=== PATIENT | male | born 2000 | race Caucasian/White ===

== ENCOUNTER 2018-02-02 15:40 | Emergency (ER) | payer MEDICAID ==
[2018-02-02 15:49] VITALS: BP 138/83; PULSE 70; RESP 18; TEMP 98; O2SAT 100
--- NOTE | 2018-02-02 16:26 | C.PDOC ---
History Of Present Illness 17 year old male patient presents to the ER with complaints of left toe pain since yesterday. Patient notes that it occurred after he played goalie in a soccer game though doesnt recall the specific incident. Reports he played the entire game but today the pain worsened prompting ED visit. Patient denies any change in sensation and or weakness. Time Seen by Provider: 02/02/18 16:03 Chief Complaint (Nursing): Lower Extremity Problem/Injury History Per: Patient History/Exam Limitations: no limitations Onset/Duration Of Symptoms: Hrs Current Symptoms Are (Timing): Still Present - Ankle/Foot Description Of Injury: Struck With Object (soccer ball) Past Medical History Reviewed: Historical Data, Nursing Documentation, Vital Signs Vital Signs: Last Vital Signs Temp 98 F 02/02/18 15:45 Pulse 70 02/02/18 15:45 Resp 18 02/02/18 16:53 BP 138/83 02/02/18 15:45 Pulse Ox 100 02/02/18 16:49 Family History: States: No Known Family Hx - Social History Hx Alcohol Use: No Hx Substance Use: No - Immunization History Hx Tetanus Toxoid Vaccination: No Hx Influenza Vaccination: No Hx Pneumococcal Vaccination: No Review Of Systems Except As Marked, All Systems Reviewed And Found Negative. Musculoskeletal: Positive for: Foot Pain (left toe pain) Neurological: Positive for: Other (no changes in sensation or motor) Physical Exam - Physical Exam Appears: Well, Non-toxic, No Acute Distress Skin: Normal Color, Warm, Dry Head: Atraumatic, Normacephalic Eye(s): bilateral: Normal Inspection, EOMI Nose: Normal Oral Mucosa: Moist Neck: Normal ROM, Supple Chest: Symmetrical Respiratory: No Accessory Muscle Use Extremity: Normal ROM, Tenderness (to the left first MTP), Capillary Refill (< 2 sec), No Deformity, No Swelling Pulses: Left Dorsalis Pedis: Normal, Right Dorsalis Pedis: Normal Neurological/Psych: Oriented x3, Normal Speech, Normal Motor, Normal Sensation Gait: Steady ED Course And Treatment O2 Sat by Pulse Oximetry: 100 (RA) Pulse Ox Interpretation: Normal - Other Rad Toe XR X-Ray: Viewed By Me, Read By Radiologist Interpretation: PROCEDURE: Radiographs of the left great toe. TECHNIQUE:: AP radiograph of the left foot, with oblique and lateral view of the left great toe. COMPARISON: None. FINDINGS: BONES: No acute fracture. Mild hallux valgus deformity. JOINTS: Normal. SOFT TISSUES: Normal. OTHER FINDINGS: None. IMPRESSION: No demonstrated fracture or dislocation. Progress Note: Plans: -- XR of left great toe. Patient was offered medication , but declined. Instructed RICE and follow up with PMD in 1-2 days. Disposition - Disposition Disposition: HOME/ ROUTINE Disposition Time: 16:48 Condition: STABLE Additional Instructions: Rest, ice and elevate the area. Follow up with your doctor in 1-2 days. Return to ER if symptoms persist or worsen. Instructions: Contusion (DC) Forms: [email or web address] ([place]) - Clinical Impression Clinical Impression: Toe contusion - PA / DRUPAL DEVELOPER / Resident Statement / has reviewed & agrees with the documentation as recorded. - Scribe Statement The provider has reviewed the documentation as recorded by the Jeanette Pulido Do All medical record entries made by the Scribe were at my direction and personally dictated by me. I have reviewed the chart and agree that the record accurately reflects my personal performance of the history, physical exam, medical decision making, and the department course for this patient. I have also personally directed, reviewed, and agree with the discharge instructions and disposition.
--- NOTE | 2018-02-02 16:34 | RAD ---
PROCEDURE: Radiographs of the left great toe. TECHNIQUE:: AP radiograph of the left foot, with oblique and lateral view of the left great toe. COMPARISON: None. FINDINGS: BONES: No acute fracture. Mild hallux valgus deformity. JOINTS: Normal. SOFT TISSUES: Normal. OTHER FINDINGS: None. IMPRESSION: No demonstrated fracture or dislocation.
== END 2018-02-02 16:55 | disposition home or self-care (01) ==
LOC: C.ER 15:40
DX: S90.112A Contusion of left great toe without damage to nail, initial encounter (principal); X50.0XXA Overexertion from strenuous movement or load, initial encounter; Y93.66 Activity, soccer; Y92.39 Other specified sports and athletic area as the place of occurrence of the external cause